=== PATIENT | female | born 1970 | race Caucasian/White ===

== ENCOUNTER → 2021-03-27 | Day surgery (SDC) | payer OTHER ==
[~2021-03-27] VITALS: Ht 162.6 cm; Wt 72.1 kg
[~2021-03-27] MED LIST: ALENDRONATE SOD70 MG PO; ASPIRIN EC81 MG PO; ATORVASTATIN CA20 MG PO; BACLOFEN10 MG PO; CENTRUM ADULTS1 EACH PO; COLESTIPOL HCL1 GM PO; DULOXETINE HCL60 MG PO; HYDROCODON-ACE1 EAC2 PO; IBUPROFEN800 MG PO; LIOTHYRONINE SO5 MCG PO; MELATONIN5 M2 PO; OMEPRAZOLE40 MG PO; TIROSINT112 MCG PO
[2021-03-27 07:46] LABS: HCT 43.6 % (37.0-47.0); HGB 14.7 g/dl (12.5-16.0); MCH 30.9 pg (25.0-31.0); MCHC 33.7 g/dL (32.0-36.0); MCV 91.6 fL (78.0-100.0); MPV 10.3 fL (6.0-9.5); RBC 4.76 M/uL (4.20-5.40); RDW 12.3 % (11.5-14.0); WBC 6.1 K/uL (4.0-10.5)
[2021-03-27 08:09] LABS: ALBUMIN 4.3 g/dL (3.4-5.0); BILIRUBIN - TOTAL 0.5 mg/dL (0.2-1.0); BUN/CREAT RATIO (CALC) 15.8 RATIO; CREATININE 0.76 mg/dL (0.51-0.95); GLOBULIN (CALCULATION) 3.6 g/dL; POTASSIUM 4.2 mmol/L (3.5-5.1); TOTAL PROTEIN 7.9 g/dL (6.4-8.2)
== END | disposition home or self-care (01) ==
LOC: FAS 07:16
PROVIDERS: Surgery
DX: Z12.11 Encounter for screening for malignant neoplasm of colon (principal); K21.00 Gastro-esophageal reflux disease with esophagitis, without bleeding; K31.9 Disease of stomach and duodenum, unspecified; F41.9 Anxiety disorder, unspecified; M19.90 Unspecified osteoarthritis, unspecified site; E78.00 Pure hypercholesterolemia, unspecified; E03.9 Hypothyroidism, unspecified; K58.9 Irritable bowel syndrome, unspecified; Z87.891 Personal history of nicotine dependence; Z88.5 Allergy status to narcotic agent; Z88.0 Allergy status to penicillin; Z88.2 Allergy status to sulfonamides; Z88.8 Allergy status to other drugs, medicaments and biological substances; Z79.82 Long term (current) use of aspirin; Z79.899 Other long term (current) drug therapy
CPT/HCPCS: 43239; G0121; 36415; 80053; J1610; J2704; J7120